=== PATIENT | female | born 1990 | race African-American/Black ===

== ENCOUNTER 2017-06-03 06:25 | Emergency (ER) | payer OTHER ==
[~2017-06-03] VITALS: Ht 162.6 cm; Wt 58.0 kg
[~2017-06-03 06:25] MED LIST: Z.0.NO CURRENT MEDS
[2017-06-03 06:28] VITALS: BP 158/80; PULSE 130; RESP 16; TEMP 97.6; O2SAT 99
[2017-06-03 06:42] VITALS: PULSE 109; O2SAT 98
[2017-06-03] MEDS ORDERED: ACETAMINOPHEN/HYDROcodone 325 MG/5 MG TAB PO ONE (06:45)
[2017-06-03] MEDS ORDERED: KETOROLAC TROMETHAMINE 60 MG/2 ML (IM) VIAL IM ONE (06:45)
[2017-06-03] MEDS ORDERED: ONDANSETRON ODT 4 MG TAB PO ONE (06:45)
--- NOTE | 2017-06-03 06:46 | PD ---
HPI Chief Complaint: Pain: Acute or Chronic Time Seen by Provider: 06:44 Travel History International Travel<30 days: No Contact w/Intl Traveler<30days: No Traveled to known affect area: No History of Present Illness HPI 26-year-old female here for evaluation of left elbow pain. It started this morning. Pain is a throbbing pain in left elbow which is constant and worse with movement. She tried taking Aleve but symptoms persisted. She denies any injuries. She reports that she does not perform repetitive activities using her left arm. She is right-handed. She has never had this problem before. She denies any history of gouty arthritis, recent sexual activity, vaginal discharge, fevers or chills. She denies any pain in the proximal arm or forearm. She denies any numbness or tingling or weakness. She has no other complaints. [facility] Past Medical History Medical History: Denies Significant Hx Diminished Hearing: No Immunizations Current: Yes ?: Not LMP: 06/03/17 Past Surgical History Abdominal Surgery: Yes (SX PYLORIC STENOSIS, HERNIA REPAIR) Social History Alcohol Use: No Tobacco Use: No Substance Use: No Allergies-Medications (Allergen,Severity, Reaction): Coded Allergies: No Known Allergies (Unverified Adverse Reaction, Unknown, 06/03/17) Reported Meds & Prescriptions Reported Meds & Active Scripts Active Reported No Current Meds (Miscellaneous Medication) Misc Review of Systems General / Constitutional: No: Fever, Chills Musculoskeletal: Positive: Limited ROM, Pain Skin: Positive Other (denies open wounds) Physical Exam Narrative GENERAL: Well-developed well-nourished female who appears uncomfortable. She is tachycardic. SKIN: Warm and dry. HEAD: Atraumatic. Normocephalic. EYES: Pupils equal and round. No scleral icterus. No injection or drainage. ENT: No nasal bleeding or discharge. Mucous membranes pink and moist. NECK: Trachea midline. No JVD. CARDIOVASCULAR: Regular rate and rhythm. No murmur appreciated. RESPIRATORY: No accessory muscle use. Clear to auscultation. Breath sounds equal bilaterally. MUSCULOSKELETAL: Generalized tenderness to palpation to the left elbow joint. The patient has limited range of motion of the left elbow secondary to pain. There is no joint effusion or olecranon bursal swelling. The compartments of the left proximal arm and forearm are soft and nontender. 2+ radial pulse. Capillary refill less than 2 seconds all digits left hand. NEUROLOGICAL: Awake and alert. No obvious cranial nerve deficits. Motor grossly within normal limits. Normal speech. Data Data Last Documented VS Vital Signs Date Time Temp Pulse Resp B/P (MAP) Pulse Ox O2 Delivery O2 Flow Rate FiO2 06/03/17 08:07 06/03/17 06:42 109 98 Room Air 06/03/17 06:34 18 06/03/17 06:28 97.6 Orders Orders Elbow, Complete (4 Vws) (06/03/17 ) Electrocardiogram (06/03/17 ) Ketorolac Inj (Toradol Inj) (06/03/17 06:45) Acetamin-Hydrocod 325-5 Mg ([place] 5-325 (06/03/17 06:45) Ondansetron Odt (Zofran Odt) (06/03/17 06:45) Ed Urine Pregnancytest Poc (06/03/17 06:55) Ed Discharge Order (06/03/17 07:38) MDM Medical Decision Making Medical Screen Exam Complete: Yes Emergency Medical Condition: Yes Medical Record Reviewed: Yes Differential Diagnosis Left elbow strain, inflammatory arthritis, septic arthritis, radial head fracture, tendinitis, epicondylitis Narrative Course 26-year-old female who woke up with spontaneous left elbow pain. On examination she does appear to be in significant amount of pain, range of motion is markedly limited secondary to pain. There is associated tachycardia likely secondary to discomfort and anxiety. Examination is otherwise unremarkable with no obvious structural abnormalities, no evidence of septic or inflammatory arthritis, no evidence of DVT or vascular issue. Given the patient 's discomfort, an x-ray of the left elbow has been ordered. EKG was ordered revealing sinus tachycardia. The patient be given Toradol and Lortab. The patient is being signed out to the oncoming provider pending x-ray imaging results and pain control. If the elbow x-ray is normal then likely the patient will be able to follow up with her primary care physician as an outpatient. Moe Meadows Jun 03, 2017 06:46
--- NOTE | 2017-06-03 07:04 | PD ---
Physical Exam Date Seen by Provider: Jun 03, 2017 Narrative 26y female presents to the ED with left elbow pain since this morning. See previous providers note regarding characteristics. According to older records, pt has a normal heart rate around 100. Vital signs stable. Left elbow x-ray demonstrates no acute fracture but there is a joint effusion. According to history, physical, and imaging findings, patient likely slept on elbow and has bursitis vs strain. 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 I advised patient to return to her primary care and continue to use Motrin or Tylenol per package instructions. Jose wrap was applied to left elbow for symptom reduction. I explained the likely diagnosis to mother and patient and they both understood and appreciated the care she received today. Data Data Last Documented VS Vital Signs Date Time Temp Pulse Resp B/P (MAP) Pulse Ox O2 Delivery O2 Flow Rate FiO2 06/03/17 08:07 06/03/17 06:42 109 98 Room Air 06/03/17 06:34 18 06/03/17 06:28 97.6 Orders Orders Elbow, Complete (4 Vws) (06/03/17 ) Electrocardiogram (06/03/17 ) Ketorolac Inj (Toradol Inj) (06/03/17 06:45) Acetamin-Hydrocod 325-5 Mg ([place] 5-325 (06/03/17 06:45) Ondansetron Odt (Zofran Odt) (06/03/17 06:45) Ed Urine Pregnancytest Poc (06/03/17 06:55) Ed Discharge Order (06/03/17 07:38) [facility] Supervised Visit with [place]: Yes Diagnosis Primary Impression: Strain of left elbow Qualified Codes: S56.912A - Strain of unspecified muscles, fascia and tendons at forearm level, left arm, initial encounter Referrals: Primary Care Physician Additional Instruction: Use ice or heat for symptom relief. If symptoms persist or worsen, return to the emergency department. Follow up with your primary care physician within 2 days. Disposition: 01 DISCHARGE HOME Condition: Stable Caty Wolfe Jun 03, 2017 07:04
--- NOTE | 2017-06-03 07:32 | RADRPT ---
EXAM DATE/TIME: 06/03/2017 07:06 [place] COMPARISON: No previous studies available for comparison. INDICATIONS : Left elbow pain after sleeping yesterday, no trauma. MEDICAL HISTORY : None. SURGICAL HISTORY : None. ENCOUNTER: Initial ACUITY: 2 days PAIN SCORE: 9/10 LOCATION: Left posterior elbow. FINDINGS: Multiple view examination of the left elbow demonstrates mild soft tissue swelling. No definite fract ure seen. There is a joint effusion. The osseous structures are in normal alignment. Bony mineraliz ation is normal. CONCLUSION: 1. No fracture seen. 2. There is a joint effusion of uncertain etiology. Jonah Ballesteros MD on June 03, 2017 at 7:27 Board Certified Radiologist. This report was verified electronically.
--- NOTE | 2017-06-03 16:44 | EKG ---
Date Performed: 06/03/2017 Time Performed: 06:39:38 PTAGE: 26 years EKG: SINUS TACHYCARDIA NONSPECIFIC ST & T-WAVE ABNORMALITY ABNORMAL RHYTHM ECG NO PREVIOUS TRACING Probable left ventricular hypertrophy Prolongation of the QT interval for the heart rate DOCTOR: Stephany Londono Interpretating Date/Time 06/03/2017 16:44:37
== END 2017-06-03 08:08 | disposition home or self-care (01) ==
LOC: NEPD 06:25
DX: S56.912A Strain of unspecified muscles, fascia and tendons at forearm level, left arm, initial encounter (principal); R00.0 Tachycardia, unspecified; X58.XXXA Exposure to other specified factors, initial encounter
CPT/HCPCS: 73080; 84703; 93005; 96372; 99284; J1885